=== PATIENT | male | born 1950 | race Two or more races ===

== ENCOUNTER 2017-12-07 12:28 | Outpatient (CLI) | payer OTHER | END 2017-12-07 12:30 | disposition home or self-care (01) | LOC: LAB 12:28 | DX: R33.8 Other retention of urine (principal); N40.1 Benign prostatic hyperplasia with lower urinary tract symptoms; D68.8 Other specified coagulation defects; I10 Essential (primary) hypertension; E11.9 Type 2 diabetes mellitus without complications ==

== ENCOUNTER 2017-12-31 07:26 | Outpatient (CLI) | payer OTHER | END 2017-12-31 07:31 | disposition home or self-care (01) | LOC: LAB 07:26 | DX: N30.00 Acute cystitis without hematuria (principal); R82.79 Other abnormal findings on microbiological examination of urine ==

== ENCOUNTER 2018-01-10 07:08 | Outpatient (CLI) | payer OTHER | END 2018-01-10 07:12 | disposition home or self-care (01) | LOC: LAB 07:08 | DX: N30.00 Acute cystitis without hematuria (principal) ==

== ENCOUNTER → 2018-01-21 09:01 | Outpatient (CLI) | payer OTHER | END | disposition home or self-care (01) | LOC: LAB 09:01 | DX: N30.00 Acute cystitis without hematuria (principal) ==

== ENCOUNTER 2018-01-26 10:08 | Outpatient (CLI) | payer OTHER | END 2018-01-26 10:21 | disposition home or self-care (01) | LOC: LAB 10:08 | DX: J44.0 Chronic obstructive pulmonary disease with (acute) lower respiratory infection (principal) ==

== ENCOUNTER 2021-02-27 20:33 | Emergency (ER) | payer OTHER ==
[~2021-02-27] VITALS: Ht 182.9 cm; Wt 72.6 kg
[~2021-02-27 20:33] MED LIST: MOBIC15 MG PO
[2021-02-27] MEDS ORDERED: ALBUTEROL (21:48)
[2021-02-27] MEDS ORDERED: AMARIL (21:49)
[2021-02-27] MEDS ORDERED: OMEPRAZOLE (21:50)
[2021-02-27] MEDS ORDERED: JANUMET (21:50)
[2021-02-27] MEDS ORDERED: VASOTEC20 M1 (21:51)
== END 2021-02-28 01:04 | disposition left against medical advice (07) ==
LOC: ER 20:33
DX: R11.10 Vomiting, unspecified (principal); Z20.822 Contact with and (suspected) exposure to COVID-19

== ENCOUNTER 2024-08-14 14:44 | Outpatient (CLI) | payer OTHER ==
[~2024-08-14 14:44] MED LIST changes: +ALBUTEROL; +AMARIL; +JANUMET; +OMEPRAZOLE; +VASOTEC20 M1
== END 2024-08-14 14:49 | disposition home or self-care (01) ==
LOC: LAB 14:44
DX: J44.9 Chronic obstructive pulmonary disease, unspecified (principal)